=== PATIENT | male | born 1990 | race Caucasian/White ===

== ENCOUNTER 2018-04-14 11:35 | Emergency (ER) | payer SELFPAY ==
[2018-04-14] MEDS ORDERED: LIDOCAINE 1% INJ-PF (10 MG/ML) 30 ML SDV INJ ONE (12:12)
--- NOTE | 2018-04-14 12:13 | ER Document Report ---
ED Medical Screen (RME) - General Chief Complaint: Wound Infection Stated Complaint: POSSIBLE WOUND INFECTION Time Seen by Provider: 04/14/18 12:07 Notes: 27 years old male with diabetes on insulin, no insurance, has not seen any doctors for over 18 months, take [employer] insulin which is not very effective, according to him. Presents today with a right abdominal wall abscess and draining serosanguineous fluid. Abscess was created by insulin injection. Denies any fever chills or other constitutional symptoms. TRAVEL OUTSIDE OF THE [place] IN LAST 30 DAYS: No - Related Data Allergies/Adverse Reactions: No Known Allergies Allergy (Verified 04/14/18 11:37) Past Medical History - Social History Chew tobacco use (# tins/day): No Frequency of alcohol use: None Renal/ Medical History: Denies: Hx Peritoneal Dialysis Physical Exam - Vital signs Vitals: Temp Pulse Resp BP Pulse Ox 98.8 F 124 H 16 157/86 H 95 04/14/18 11:42 04/14/18 11:42 04/14/18 11:42 04/14/18 11:42 04/14/18 11:42 Course - Vital Signs Vital signs: Temp Pulse Resp BP Pulse Ox 98.8 F 124 H 16 157/86 H 95 04/14/18 11:42 04/14/18 11:42 04/14/18 11:42 04/14/18 11:42 04/14/18 11:42
[2018-04-14 12:39] LABS: ABSOLUTE BASOPHILS # (AUTO) 0.1 10^3/uL (0.0-0.2); ABSOLUTE EOSINOPHILS # (AUTO) 0.1 10^3/uL (0.0-0.6); ABSOLUTE LYMPHOCYTES (AUTO) 1.7 10^3/uL (0.5-4.7); ABSOLUTE MONOCYTES (AUTO) 0.9 10^3/uL (0.1-1.4); ABSOLUTE NEUT (AUTO) 12.2 10^3/uL (1.7-8.2); BASOPHILS % (AUTO) 0.5 % (0-2); EOSINOPHILS % (AUTO) 0.4 % (0-6); HEMATOCRIT 47.9 % (37.9-51.0); HEMOGLOBIN 15.8 g/dL (13.5-17.0); LYMPHOCYTES % (AUTO) 11.6 % (13-45); MEAN CORPUSCULAR HEMOGLOBIN 28.2 pg (27.0-33.4); MEAN CORPUSCULAR HGB CONC 33.1 g/dL (32.0-36.0); MEAN CORPUSCULAR VOLUME 85 fl (80-97); MONOCYTES % (AUTO) 6.2 % (3-13); PLATELET COUNT 291 10^3/uL (150-450); RED BLOOD COUNT 5.61 10^6/uL (4.35-5.55); SEGMENTED NEUTROPHILS % (AUTO) 81.3 % (42-78); TOTAL CELLS COUNTED % (AUTO) 100 %; WHITE BLOOD COUNT 14.9 10^3/uL (4.0-10.5)
[2018-04-14 13:06] LABS: ALANINE AMINOTRANSFERASE 21 U/L (21-72); ALBUMIN 4.8 g/dL (3.5-5.0); ALKALINE PHOSPHATASE 199 U/L (38-126); ASPARTATE AMINO TRANSFERASE 16 U/L (17-59); BILIRUBIN,DIRECT 0.6 mg/dL (0.0-0.4); BILIRUBIN,TOTAL 1.2 mg/dL (0.2-1.3); BLOOD UREA NITROGEN 12 mg/dL (7-20); CALCIUM 9.9 mg/dL (8.4-10.2); CARBON DIOXIDE 17 mmol/L (22-30); CHLORIDE 97 mmol/L (98-107); GLUCOSE 332 mg/dL (75-110); POTASSIUM 4.6 mmol/L (3.6-5.0); TOTAL PROTEIN 8.4 g/dL (6.3-8.2)
[2018-04-14 13:12] LABS: SODIUM 138.2 mmol/L (137-145)
[2018-04-14 13:14] LABS: ANION GAP 24 (5-19)
[2018-04-14] MEDS ORDERED: NORMAL SALINE 1000 ML 1,000 ML IV ONE ×3 (13:15→17:43)
--- NOTE | 2018-04-14 13:25 | ER Document Report ---
ED General - General Chief Complaint: Wound Infection Stated Complaint: POSSIBLE WOUND INFECTION Time Seen by Provider: 04/14/18 12:07 TRAVEL OUTSIDE OF THE [place] IN LAST 30 DAYS: No - HPI Notes: Patient is a 27-year-old male with a history of insulin-dependent diabetic with an insulin pump who presents to the ED complaining of elevated blood glucose, nauseousness, intermittent weakness over the last several days which resembles when he had DKA in the past. Patient states that he also has an infection at the site where he removed his insulin pump to his right lower abdomen. Patient states that he has noticed redness, swelling, and purulent discharge. Patient states that he is still able to eat and drink, but does have a decreased p.o. intake. Patient states that he is urinating frequently. He is having normal bowel movements. Denies any drug allergies. No other significant past medical history. Denies any headache, fever, neck pain, URI, sore throat, chest pain, palpitations, syncope, cough, shortness of breath, wheeze, dyspnea, vomiting/ diarrhea, urinary retention, dysuria, hematuria, back pain, loss of control of bowel or bladder, numbness/tingling, or rash. - Related Data Allergies/Adverse Reactions: No Known Allergies Allergy (Verified 04/14/18 11:37) Past Medical History - Social History Smoking Status: Never Smoker Chew tobacco use (# tins/day): No Frequency of alcohol use: None Family History: Reviewed & Not Pertinent Patient has suicidal ideation: No Patient has homicidal ideation: No - Past Medical History Cardiac Medical History: Reports: Hx Hypercholesterolemia, Hx Hypertension Endocrine Medical History: Reports: Hx Diabetes Mellitus Type 1 Renal/ Medical History: Denies: Hx Peritoneal Dialysis Psychiatric Medical History: Reports: Hx Depression - anxiety Past Surgical History: Reports: Hx Tonsillectomy Review of Systems - Review of Systems -: Yes All other systems reviewed and negative Physical Exam - Vital signs Vitals: Temp Pulse Resp BP Pulse Ox 98.8 F 124 H 16 157/86 H 95 04/14/18 11:42 04/14/18 11:42 04/14/18 11:42 04/14/18 11:42 04/14/18 11:42 - Notes Notes: PHYSICAL EXAMINATION: GENERAL: Well-appearing, well-nourished and in no acute distress. A&Ox4. Answers questions appropriately. HEAD: Atraumatic, normocephalic. EYES: Pupils equal round and reactive to light, extraocular movements intact, sclera anicteric, conjunctiva are normal. ENT: Nares patent and without discharge. oropharynx clear without exudates. No tonsilar hypertrophy or erythema. Moist mucous membranes. NECK: Normal range of motion, supple without lymphadenopathy LUNGS: Breath sounds clear to auscultation bilaterally and equal. No wheezes rales or rhonchi. HEART: Regular rate and rhythm without murmurs, rubs, gallops. ABDOMEN: Soft, nondistended abdomen. No guarding, no rebound. No masses appreciated. Normal bowel sounds present. No CVA tenderness bilaterally. there is a large erythemic/indurated area to the rt lower abd with flucutance and scant purulence noted. + tenderness. Musculoskeletal: FROM to passive/active. Strength 5+/5. Extremities: No cyanosis, clubbing, or edema b/l. Peripheral pulses 2+. Capillary refill less than 3 seconds. NEUROLOGICAL: Normal speech, normal gait. Normal sensory, motor exams PSYCH: Normal mood, normal affect. SKIN: see above. Course - Re-evaluation Re-evalutation: 04/14/18 15:[address] Campa who will come evaluate the patient. Pt's last fluid (water) intake was 10am and food last night approx 2am. 04/14/18 16:21 Dr. Campa performed I&D at bedside. He would like Cleocin QID and f/u Thursday in the clinic for recheck. He is aware of his current vitals (HR 105) and labs and is okay with discharge, no admit for the infection. CBC shows an elevated white count with left shift. CMP shows a mild Gap with hyperglycemia. Lactic acid within normal limits. I will recheck VBG prior to discharge. Glucose improved with fluids. The second VBG is technically part of the first VBG that was drawn. 04/14/18 18:20 Patient is an afebrile, well-hydrated, 27-year-old male who presents to the ED with elevated glucose and abdominal abscess. Vitals are currently acceptable. PE is otherwise unremarkable. Patient's abdomen is soft and nontender aside from where the abscess is. Patient is nontoxic-appearing and is tolerating p.o. without difficulties. Patient states that he did increase his basal rate for his glucose. He has received 3 L of fluid. His venous blood gas did slightly downtrending to 7.29 from 7.33 with a mildly low bicarb. He does appear to be in a early mild DKA, but has no other vomiting or GI symptoms. Patient states that he feels well enough to go home and would like to go home versus being admitted to the hospital. Patient does seem like a reliable patient and has a good grasp on his insulin and symptoms. I did review with Dr. Parker who is favoring discharge to home with close monitoring at this time vs admission based on his current symptomatology and toleration of PO. He is aware of the mild tachycardia. I did review the risk/benefit with the patient of admission vs discharge and he states that he will return with any worsening symptoms. No further labs or imaging warranted at this time. Low suspicion for any sepsis, meningitis, severe dehydration, respiratory compromise , acute abdomen, or other systemic emergent condition at this time. Patient is aware that condition can change from initial presentation and he needs to monitor symptoms closely and seek medical attention with any acute changes. Recheck with PCM in 2-3 days. Keep consult with surgery on Thursday. Return to the ED with any worsening/concerning symptoms otherwise as reviewed discharge. Patient is in agreement. - Vital Signs Vital signs: Temp Pulse Resp BP Pulse Ox 98.8 F 124 H 20 157/81 H 100 04/14/18 11:42 04/14/18 11:42 04/14/18 17:14 04/14/18 17:14 04/14/18 17:14 - Laboratory Result Diagrams: 04/14/18 12:24 04/14/18 12:24 Laboratory results interpreted by me: 04/14/18 04/14/18 04/14/18 12:24 12:24 12:24 WBC 14.9 H RBC 5.61 H Seg Neutrophils % 81.3 H Lymphocytes % 11.6 L Absolute Neutrophils 12.2 H VBG pH VBG pCO2 VBG HCO3 Chloride 97 L Carbon Dioxide 17 L Anion Gap 24 H Glucose 332 H POC Glucose Hemoglobin A1c % 13.1 H Direct Bilirubin 0.6 H AST 16 L Alkaline Phosphatase 199 H Total Protein 8.4 H Urine Protein Urine Glucose (UA) Urine Ketones 04/14/18 04/14/18 04/14/18 13:25 13:50 14:06 WBC RBC Seg Neutrophils % Lymphocytes % Absolute Neutrophils VBG pH VBG pCO2 30.8 L 31.8 L VBG HCO3 15.8 L 16.6 L Chloride Carbon Dioxide Anion Gap Glucose POC Glucose Hemoglobin A1c % Direct Bilirubin AST Alkaline Phosphatase Total Protein Urine Protein 30 H Urine Glucose (UA) >=500 H Urine Ketones 80 H 04/14/18 04/14/18 16:01 16:30 WBC RBC Seg Neutrophils % Lymphocytes % Absolute Neutrophils VBG pH 7.29 L VBG pCO2 VBG HCO3 16.9 L Chloride Carbon Dioxide Anion Gap Glucose POC Glucose 281 H Hemoglobin A1c % Direct Bilirubin AST Alkaline Phosphatase Total Protein Urine Protein Urine Glucose (UA) Urine Ketones Discharge - Discharge Clinical Impression: Abscess, Elevated glucose Condition: Stable Disposition: HOME, SELF-CARE Instructions: Abscess ([facility]), Post Incision and Drainage Additional Instructions: Do not shower or bathe for 24 hours. After 24 hours she may shower but no submersion of the wound under water. Keep the original dressing on the wound for 24 hours unless the drainage soaks through. Change the dressing daily thereafter and use a small amount of triple antibiotic ointment over the open wound. See the surgeon's office as directed on Thursday for recheck and packing removal. Monitor for any signs of worsening pain or redness, streaks, and/or fever. Return to the ED if noticing any of the above symptoms or as needed. Take medications as directed. Return to the ED with any worsening symptoms and/or development of fever, headache, chest pain, palpitations, syncope, shortness of breath, trouble breathing, abdominal pain, n/v/d, blood in stool/urine, or other worsening symptoms that are concerning to you. Prescriptions: Clindamycin HCl [Cleocin 300 mg Capsule] 300 mg PO QID #40 capsule Forms: Elevated Blood Pressure Referrals: [facility] [Provider Group] - 04/16/18
[2018-04-14 13:47] LABS: APPEARANCE,URINE CLEAR; BILIRUBIN,URINE NEGATIVE (NEGATIVE); COLOR,URINE YELLOW; GLUCOSE, URINE >=500 mg/dL (NEGATIVE); KETONES,URINE 80 mg/dL (NEGATIVE); LEUKOCYTE ESTERASE,URINE NEGATIVE (NEGATIVE); NITRITE,URINE NEGATIVE (NEGATIVE); PROTEIN,URINE 30 mg/dL (NEGATIVE); URINE SPECIFIC GRAVITY 1.029; UROBILINOGEN,URINE NEGATIVE mg/dL (<2.0)
[2018-04-14 14:10] LABS: VENOUS BLOOD BASE EXCESS -8.8 mmol/L; VENOUS BLOOD HCO3 15.8 mmol/L (20-32); VENOUS BLOOD PCO2 30.8 mmHg (35-63); VENOUS BLOOD PH 7.33 (7.30-7.42)
--- NOTE | 2018-04-14 15:21 | RADIOLOGY REPORT (SQ) ---
EXAM DESCRIPTION: U/S ABDOMEN LTD W/DOPPLER COMPLETED DATE/TIME: 04/14/2018 3:10 pm REASON FOR STUDY: abscess evaluation rt lower abd COMPARISON: None. TECHNIQUE: Dynamic and static grayscale images acquired of the localized site of clinical concern an d recorded on PACS. Additional selected color Doppler and spectral images recorded. SITE OF CONCERN: Soft tissues right lower quadrant. LIMITATIONS: None. FINDINGS: Irregular heterogenous complex fluid collection measuring 2 x 2.5 cm. Approximately 6 mm from the skin surface. IMPRESSION: HETEROGENOUS COMPLEX FLUID COLLECTION DESCRIBED. GIVEN THE CLINICAL HISTORY, THIS IS SUSPICIOUS FOR INFECTIOUS ETIOLOGY, POSSIBLE DEVELOPING ABSCESS. TECHNICAL DOCUMENTATION: JOB ID: [id number] [employer]- All Rights Reserved Reading location - IP/workstation name: [email or web address]
[2018-04-14 16:35] LABS: VENOUS BLOOD HCO3 16.6 mmol/L (20-32); VENOUS BLOOD PCO2 31.8 mmHg (35-63); VENOUS BLOOD PH 7.34 (7.30-7.42)
[2018-04-14 16:57] LABS: VENOUS BLOOD BASE EXCESS -8.8 mmol/L; VENOUS BLOOD HCO3 16.9 mmol/L (20-32); VENOUS BLOOD PH 7.29 (7.30-7.42)
[2018-04-14] MEDS ORDERED: ACETAMINOPHEN 325 MG TABLET PO ONE (17:07)
[2018-04-14 18:37] VITALS: BP 143/77
== END 2018-04-14 18:35 | disposition home or self-care (01) ==
LOC: ER 11:35
DX: L02.211 Cutaneous abscess of abdominal wall (principal); E10.65 Type 1 diabetes mellitus with hyperglycemia; R11.0 Nausea; R53.1 Weakness; I10 Essential (primary) hypertension
CPT/HCPCS: 99284; 96360; 96361; 36415; 87070; 87205; 82962; 83605; 85025; 87075; 87077; 80053; 81001; 87186; 83036; 82803; 76705; 93976; 10060; A6266; J3490; J7030; 86701; 86803; 86804; 87340